=== PATIENT | female | born 1990 | race Caucasian/White ===

== ENCOUNTER 2019-03-04 10:28 | Inpatient (IN) ==
[2019-03-04] MEDS ORDERED: OXYTOCIN 30 UNITS/500 ML BAG IV PRN ×2 (10:32→14:42)
--- NOTE | 2019-03-04 10:34 | History & Physical Report ---
Date of Service March 04, 2019 Assessment & Plan (1) Active labor: 28 yo F here for labor at 38.3weeks, 6cm dilated/90% effaced/-1 station on arrival. - For expected vaginal delivery. Plan for epidural as soon as possible. - Membranes intact, continue to monitor for progression of labor. History of Present Illness Chief Complaint: active labor Primary Care Provider: NO PCP Estefania is a 28 yo F ; dating parameters 38.3weeks by LMP; no complications this or in previous pregnancies. Attended OB appointments with [facility]. Here for active labor with contractions intermittently yesterday but with increase in frequency and pain severity early this morning. No gush of fluid, no vaginal bleeding. Feels good movement. Labor plan is for epidural. Labs (serology 08/15/2018; CBC 03/04/2019): Blood type: B+ Antibody screen: negative Hgb: 12.8 Hct: 37.6 WBC: 16.5 Plt: 170 Rubella status: immune VDLR/RPR: NR Gonorrhea: negative Chlamydia: negative HIV: negative GBS: negative HbSAg: negative Glucose tolerance test x2: negative Pt has history of LGSIL PAP with colposcopy showing CINI, requiring PAP . Social history includes current every smoking but no alcohol or illicit drug use. Allergies Allergy/AdvReac Type Severity Reaction Status Date / Time No Known Drug Allergies Allergy Unknown . Verified 03/02/19 09:32 Home Medications Home Medications Medication Instructions Recorded Confirmed Type prenat.vits,sherman,[id number] 1 tab PO DAILY 09/10/18 03/04/19 History Patient History Medical History Anxiety (Chronic) Blurry vision, bilateral (Resolved) Dental infection (Inactive) History of asthma hasn't used inhaler since she was a child History of migraine History of prolonged History of varicella Low grade squamous intraepithelial lesion on cytologic smear of cervix (LGSIL) (Acute) had colpo- will recheck after delivery Pain, dental (Acute) Teeth missing teeth removed Fall 2018- 4 teeth Surgical History [place] teeth removed age 16 Family History Mother Anxiety Depression Hypertension Kidney stones Gestational diabetes Sister Kidney stones Other No pertinent family history Social History Preferred Language: French Communication Ability: Effective Visual Impairment: No Limitations Hearing Ability: Normal Beliefs That Will Affect Care: None marital status: Single Current Living Situation: Alone Current Living Situation Comment: lives with her 2 children Other Information That Helps Us Care for You: No Feels Safe at Home: Yes Safety Concerns: Feels Safe At This Time Smoking Status: Current every day smoker Tobacco Type: cigarettes ; Cigarettes Per Day: 10 ; Do You Dip or Chew Tobacco: No ; Second Hand Exposure: Yes ; Tobacco Cessation Education Requested by Patient: No Hx Alcohol Use: No Hx Substance Use: No Review of Systems Constitutional: denies fever, chills, sweats, headache Respiratory: denies SOB, difficulty breathing Cardiac: denies CP, chest palpitations, chest pressure Breast: denies breast pain : denies dysuria Physical Exam Physical Exam: General: patient is alert and oriented, in NAD Cardiac: +S1/S2, no murmurs rubs or gallops Respiratory: lungs CTA b/l, anteriorly and posteriorly, no wheezes rales or rhonchi, no increased work of breathing, symmetric chest rise, no respiratory distress Abdomen: soft, NT, +bowel sounds Uterus: uterine fundus firm. Lower Extremities: no LE edema or swelling, no deep calf pain, Chelsey's sign negative b/l Genitourinary: Manual OB Exam: + cervical dilation 6 cm, + cervical effacement 90% and + station -1 OB Exam Monitor Tracing: + external FHT monitor used, + external uterine monitor used, + category I and + normal FHT variability Results & Data Vital Signs (Past 12 Hours) Vital Signs Pulse BP Pulse Ox 03/04/19 10:51 85 100 03/04/19 10:46 83 100 03/04/19 10:41 90 100 03/04/19 10:38 100 H 125/76 Laboratory Results Laboratory Results - last 24 hr 03/04/19 10:39 WBC 16.50 H RBC 4.37 Hgb 12.8 Hct 37.6 MCV 86.0 MCH 29.3 MCHC Pending RDW Std Deviation 40.1 RDW Coeff of [place] 12.8 Plt Count 170 MPV 10.9 H Medications Administered Current Medications Lactated Ringer's (Lr) 1,000 mls @ 125 mls/hr IV .Q8H PRN; Protocol PRN Reason: L&D Protocol Stop: 03/06/19 10:31 Oxytocin (Pitocin) 30 units in 500 mls @ 333.333 mls/hr IV .Q1H30M PRN; Protocol PRN Reason: Bleeding Control Stop: 04/03/19 10:31 Prenat Multivit/[place]/Iron/Folic Ac ( Vitamin) 1 tab PO DAILY BRE Stop: 04/04/19 08:59 Monitoring External Monitor HR 120s with good variability, no decelerations Resident Activity Tracking Resident Involvement: Resident Care Provided Care Provided: OB Delivery
[2019-03-04] MEDS ORDERED: ePHEDrine sulfate 50 MG/ML AMP ONE (10:46)
[2019-03-04] MEDS ORDERED: fentaNYL citrate 100 MCG/2 ML VIAL ONE ×2 (10:46→11:54)
[2019-03-04] MEDS ORDERED: BUPIVACAINE 0.25% 30 ML VIAL ONE (10:46)
[2019-03-04] MEDS ORDERED: fentaNYL 2MCG/ML ROPIV 1.25MG/ML 100 ML BAG EPI ONE (10:46)
[2019-03-04 10:49] LABS: Hematocrit (blood only) 37.6 % (37-47); Hemoglobin 12.8 g/dL (12.0-16.0); Mean Corpuscular Hemoglobin 29.3 pg (25-34); Mean Platelet Volume 10.9 fL (7.4-10.4); Platelet Count 170 K/uL (130-400); RDW Coefficient of Variation 12.8 % (11.5-14.5); RDW Standard Deviation 40.1 fL (36.4-46.3); Red Blood Count 4.37 M/uL (4.2-5.4)
[2019-03-04] MEDS: LACTATED RINGER'S 1,000 ML IV PRN ×2 (10:50→11:51)
--- NOTE | 2019-03-04 11:58 | Anesthesiology Consultation ---
Date of Service March 04, 2019 Assessment & Plan Chart Review Chart Review: Acceptable Risk for Labor Epidural Consults Requested none History Height/Weight Height: 5 ft 3 in Weight: 63.503 kg Allergies Allergy/AdvReac Type Severity Reaction Status Date / Time No Known Drug Allergies Allergy Unknown . Verified 03/02/19 09:32 Medications Home Medications Medication Instructions Recorded Confirmed Last Taken prenat.vits,sherman,[id number]-[id number]-cikgf 1 tab PO DAILY 09/10/18 03/04/19 10/26/18 18:00 Active Medications Generic Name Dose Route Start Last Admin Trade Name Freq PRN Reason Stop Dose Admin Lactated Ringer's 1,000 mls @ 125 mls/hr 03/04/19 10:32 03/04/19 11:51 Lr IV 03/06/19 10:31 125 mls/hr .Q8H PRN Administration L&D Protocol Protocol Past Medical History Medical History Anxiety (Chronic) Blurry vision, bilateral (Resolved) Dental infection (Inactive) History of asthma hasn't used inhaler since she was a child History of migraine History of prolonged History of varicella Low grade squamous intraepithelial lesion on cytologic smear of cervix (LGSIL) (Acute) had colpo- will recheck after delivery Pain, dental (Acute) Teeth missing teeth removed Fall 2018- 4 teeth Past Family History Family History Mother Anxiety Depression Hypertension Kidney stones Gestational diabetes Sister Kidney stones Other No pertinent family history Past Surgical History Surgical History [place] teeth removed age 16 Social History Smoking Status: Current every day smoker tobacco type: cigarettes Smoking cigarettes per day: 10 Do You Dip or Chew Tobacco: No Hx Alcohol Use: No Hx Substance Use: No Physical Exam Vital Signs Last Vital Signs Temp 36.5 C 03/04/19 11:20 Pulse 96 H 03/04/19 11:57 Resp 20 03/04/19 11:20 BP 125/66 03/04/19 11:57 Pulse Ox 100 03/04/19 11:56 Testing Laboratory Results 03/04/19 10:39
[2019-03-04] MEDS ORDERED: ePHEDrine sulfate 50 MG/ML AMP IV PRN (12:00)
[2019-03-04] MEDS ORDERED: NALBUPHINE HCL INJ 10 MG/ML AMP IV PRN (12:00)
[2019-03-04] MEDS ORDERED: NALOXONE HCL 1 MG in SODIUM CHLORIDE 0.9% 1000ML 1,000 ML IV PRN (12:00)
[2019-03-04] MEDS ORDERED: DiphenhydrAMINE HCL 50 MG/ML VIAL IV PRN (12:00)
[2019-03-04] MEDS ORDERED: fentaNYL 2MCG/ML ROPIV 1.25MG/ML 100 ML BAG EPI PRN (12:00)
[2019-03-04] MEDS ORDERED: NALOXONE HCL 0.4 MG/1 ML VIAL/CARP IV PRN (12:00)
--- NOTE | 2019-03-04 14:17 | Delivery Summary ---
Vaginal Delivery Summary Date of Service March 04, 2019 Vaginal Delivery Summary of live vigorous . Presented in active labor, GBS negative. Requested epidural, then AROM for clear fluid. Easy delivery with no excess force. Gentle traction. Placenta remoced with traction, Pitocin started, hemostasis improved. 1st degree tear repaired with 3-0 vicryl. OLU=[id number] Sponge and instrument counts correct.
[2019-03-04] MEDS ORDERED: BENZOCAINE 20% AER SPR 82.5 GM CAN EXT PRN (14:42)
[2019-03-04] MEDS ORDERED: DIPHTHERIA/TETANUS/PERTUSSIS 0.5 ML SYR/VIAL IM ONE (14:42)
[2019-03-04] MEDS ORDERED: SUPERCREAM 0.870% 15 GM JAR EXT PRN (14:42)
[2019-03-04] MEDS ORDERED: OXYCODONE/ACETAMINOPHEN 5mg/325mg TAB PO PRN (14:42)
[2019-03-04] MEDS ORDERED: LACTATED RINGER'S 1,000 ML IV SCH (14:42)
[2019-03-04] MEDS ORDERED: HYDROCORTISONE ACETATE 25 MG SUPP PR PRN (14:42)
[2019-03-04] MEDS ORDERED: ZOLPIDEM TARTRATE 5 MG TAB PO PRN (14:42)
[2019-03-04] MEDS ORDERED: bisacodyL 10 MG SUPP PR PRN (14:42)
[2019-03-04] MEDS ORDERED: ACETAMINOPHEN 325 MG TAB PO PRN (14:42)
[2019-03-04 14:52] LABS: Base Excess Cord Arterial Bld -1.8 mEq/L (-9-1.8); CO2 Cord Arterial Blood 45 mmHg (39.1-73.5); HCO3 Cord Arterial Blood 24 mmol/L (19.7-28.5); PO2 Cord Arterial Blood 41 mmHg (4.1-31.7); pH Cord Arterial Blood 7.34 (7.1-7.38)
[2019-03-04 14:54] LABS: Oxygen Sat Cord Arterial Blood < 60.0 % (<60)
[2019-03-04 15:01] LABS: Base Excess Cord Venous Blood -0.8 mEq/L (-7.7-1.9); Cord Venous Blood HCO3 24 mmol/L (18.4-26.8); Cord Venous Blood PCO2 39 mmHg (30.4-57.2); Cord Venous Blood PO2 30 mmHg (14.1-43.3); O2 Saturation Cord Venous Bld 69.6 % (<68)
[2019-03-04] MEDS: IBUPROFEN 600 MG TAB PO PRN ×2 (18:09→22:12)
[2019-03-04] MEDS: DOCUSATE SODIUM 100 MG CAP PO SCH (20:05)
--- NOTE | 2019-03-05 01:17 | Anesthesia Procedure Note ---
Date of Service March 05, 2019 Anesthesia Post Epidural Note Vital Signs Vital Signs: Temp Pulse Resp BP Pulse Ox 36.8 C 75 20 96/57 L 97 03/04/19 20:00 03/04/19 20:00 03/04/19 20:00 03/04/19 20:00 03/04/19 20:00 Notes Mental Status: alert / awake / arousable Nausea / Vomiting: adequately controlled Pain: adequately controlled Airway Patency, RR, SpO2: stable & adequate BP & HR: stable & adequate Hydration State: stable & adequate Neuraxial Anesthesia: was administered and sensory block is resolving Anesthetic Complications: no major complications apparent and Pt Satisfied with anesthetic care Epidural: Removed without complications and With tip intact
[2019-03-05] MEDS: IBUPROFEN 600 MG TAB PO PRN ×2 (05:56→12:02)
--- NOTE | 2019-03-05 06:22 | Obstetrical Progress Note ---
Date of Service <Pebbles Deras DO - Last Filed: 03/05/19 06:44> March 05, 2019 Assessment & Plan <Pebbles Deras DO - Last Filed: 03/05/19 06:44> (1) Encounter for care and examination after delivery: 28 yo F PPD #1 following vaginal delivery at 38.3 weeks, doing well and without complaints this morning. - PPD #1. - Blood type B+, Rubella immune. - Feels well, ambulating well, voiding well. - Will discharge today. - Following d/c will have f/u in 6 weeks. - Went over discharge instructions and answered all patient questions. Subjective <Pebbles Deras DO - Last Filed: 03/05/19 06:44> Estefania is a 28 yo female ; PPD # 1 following vaginal delivery at 38.3weeks; doing well this AM; no abdominal cramping/pain; voiding well; tolerating meals overnight, able to ambulate some within the room. Desires discharge today. Review of Systems Constitutional: denies fever, chills, sweats, headache Respiratory: denies SOB, difficulty breathing Cardiac: denies CP, chest palpitations, chest pressure Breast: denies breast pain : denies dysuria Physical Exam <DO Ken White Last Filed: 03/05/19 06:44> General: patient is alert and oriented, in NAD Cardiac: +S1/S2, no murmurs rubs or gallops Respiratory: lungs CTA b/l, anteriorly and posteriorly, no wheezes rales or rhonchi, no increased work of breathing, symmetric chest rise, no respiratory distress Abdomen: soft, NT, +bowel sounds Uterus: uterine fundus firm, palpable below the level of the umbilicus Lower Extremities: no LE edema or swelling, no deep calf pain, Chelsey's sign negative b/l Results & Data <Pebbles Deras DO - Last Filed: 03/05/19 06:44> Vital Signs (Past 12 Hours) Vital Signs Temp Pulse Resp BP Pulse Ox 03/04/19 23:30 36.8 C 56 L 18 106/61 03/04/19 20:00 36.8 C 75 20 96/57 L 97 Medications Administered Current Medications Acetaminophen (Tylenol) 650 mg PO Q6H PRN PRN Reason: Pain/MENON/Fever Stop: 04/03/19 14:41 Benzocaine (Dermoplast Pain Relieving [place]) 1 appln EXT PRN PRN PRN Reason: Perineal Discomfort Stop: 04/03/19 14:41 Last Admin: 03/04/19 20:04 Dose: 1 appln Documented by: Bisacodyl (Dulcolax) 5 mg PO 1999 [facility] Stop: 03/05/19 20:01 Bisacodyl (Dulcolax) 10 mg SD DAILY PRN PRN Reason: No BM on 2nd post- day Stop: 04/03/19 14:41 Cocaine HCl (Supercream 0.870%) 1 gm EXT BID PRN PRN Reason: Hemorrhoidal Inflammation Stop: 03/18/19 14:41 Docusate Sodium (Colace) 100 mg PO DAILY@, [facility] Stop: 04/03/19 20:59 Last Admin: 03/04/19 20:05 Dose: 100 mg Documented by: Hydrocortisone (Anusol Hc) 25 mg SD BID PRN PRN Reason: Hemorrhoidal Inflammation Stop: 04/03/19 14:41 Lactated Ringer's (Lr) 1,000 mls @ 125 mls/hr IV .Q8H BRE Stop: 04/03/19 14:41 Oxytocin (Pitocin) 30 units in 500 mls @ 333.333 mls/hr IV .Q1H30M PRN; Protocol PRN Reason: Bleeding Control Last Admin: 03/04/19 14:15 Dose: 20 units/hr, 333.3 mls/hr Documented by: Ibuprofen (Motrin) 600 mg PO Q4H PRN PRN Reason: Pain/MENON/Cramping/Fever Stop: 04/03/19 14:41 Last Admin: 03/05/19 05:56 Dose: 600 mg Documented by: Oxycodone/Acetaminophen (Percocet 5mg/325mg) 1 tab PO Q4H PRN PRN Reason: Pain not relieved by... Stop: 03/18/19 14:41 Prenat Multivit/[place]/Iron/Folic Ac ( Vitamin) 1 tab PO DAILY@08 [facility] Stop: 04/04/19 07:59 Zolpidem Tartrate (Ambien) 5 mg PO HS PRN PRN Reason: Sleep Stop: 04/03/19 14:41 <Kasandra Eagle MD, FACOG - Last Filed: 03/05/19 07:03> Co-Signing Physician Notes Resident Physician Supervision Note: I interviewed and examined the patient. Discussed with Dr. Deras and agree wit h findings and plan as documented in the note. Any exceptions or clarifications are listed here: [None] Documented By: Kasandra Eagle MD, FACOG Resident Activity Tracking <Pebbles Deras DO - Last Filed: 03/05/19 06:44> Resident Involvement: Resident Care Provided Care Provided: OB Delivery
[2019-03-05 06:26] LABS: Hematocrit (blood only) 34.4 % (37-47); Hemoglobin 11.6 g/dL (12.0-16.0); Mean Corpuscular Hemoglobin 29.4 pg (25-34); Mean Corpuscular Hgb Conc 33.7 g/dL (32-36); Mean Corpuscular Volume 87.3 fL (80-100); Mean Platelet Volume 11.4 fL (7.4-10.4); Platelet Count 157 K/uL (130-400); RDW Coefficient of Variation 12.9 % (11.5-14.5); RDW Standard Deviation 41.1 fL (36.4-46.3); Red Blood Count 3.94 M/uL (4.2-5.4); White Blood Count 13.66 K/uL (4.8-10.8)
[2019-03-05] MEDS ORDERED: PRENATAL VITAMIN 1 TAB PO SCH ×2 (08:00→09:00)
[2019-03-05] MEDS: DOCUSATE SODIUM 100 MG CAP PO SCH (08:35)
[2019-03-05] MEDS ORDERED: bisacodyL 5 MG TABEC PO SCH (20:00)
== END 2019-03-05 20:35 | disposition home or self-care (01) | DRG 807 ==
LOC: OPB 10:28 → 4S1 10:30 → 4S2 16:37